=== PATIENT | male | born 1985 | race Caucasian/White ===

== ENCOUNTER 2017-02-17 16:28 | Emergency (ER) | payer OTHER ==
[2017-02-17 16:38] VITALS: BP 132/68
[2017-02-17] MEDS ORDERED: Eye Irrigation Solution 30 ML BOTTLE LEFT EYE ONE (16:45)
[2017-02-17] MEDS ORDERED: Fluorescein Sodium TOPICAL* 1 MG TEST OPHTHALMIC ONE (16:45)
[2017-02-17] MEDS ORDERED: Tetracaine 0.5% OPTH.SOL 4 ML* 1 DROP BTL LEFT EYE ONE (16:45)
--- NOTE | 2017-02-17 17:11 | UC ---
Eye Complaint HPI - HPI Summary HPI Summary: LEFT EYE IRRITATION YESTERDAY, TOOK OUT CONTACT LENS. SINCE TAKING OUT CONTACT LENS HAS HAD IRRITATION AND REDNESS TO LEFT EYE. CLEAR TEARY DISCHARGE - History of Current Complaint Chief Complaint: UCEye Stated Complaint: PINK EYE Time Seen by Provider: 02/17/17 16:35 Hx Obtained From: Patient Onset/Duration: Sudden Onset, Lasting Days Timing: Intermittent Episode Lasting Severity Initially: Mild Severity Currently: Mild Location of Injury: Conjunctiva Aggravating Factor(s): Nothing Associated Signs And Symptoms: Positive: Photophobia, Drainage (Clear). Negative: Drainage (Purulent), Vision Impairment Bilateral, Vision Impairment Right, Vision Impairment Left, Fever, Swelling - Risk Factors Penetrating Injury Risk Factor: Negative Acute Glaucoma Risk Factors: Eye Inflammation Optic Artery Occlusion Risk Factors: Negative - Allergies/Home Medications Allergies/Adverse Reactions: Allergies Allergy/AdvReac Type Severity Reaction Status Date / Time No Known Allergies Allergy Verified 02/17/17 16:38 PMH/Surg Hx/FS Hx/Imm Hx Previously Healthy: Yes - Surgical History Surgical History: None - Family History Known Family History: Negative: Diabetes - Social History Occupation: Works From/At Home Lives: With Family Alcohol Use: Weekly Substance Use Type: None Smoking Status (MU): Never Smoked Tobacco Review of Systems Constitutional: Negative Skin: Negative Eyes: Drainage, Eye Redness ENT: Negative Respiratory: Negative Cardiovascular: Negative Gastrointestinal: Negative Genitourinary: Negative Motor: Negative Neurovascular: Negative Musculoskeletal: Negative Neurological: Negative Psychological: Negative Is Patient Immunocompromised?: No All Other Systems Reviewed And Are Negative: Yes Physical Exam Triage Information Reviewed: Yes Appearance: Well-Appearing, No Pain Distress, Well-Nourished Vital Signs: Initial Vital Signs Temp 98.5 F 02/17/17 16:31 Pulse 74 02/17/17 16:31 Resp 14 02/17/17 16:31 BP 132/68 02/17/17 16:31 Pulse Ox 98 02/17/17 16:31 Vital Signs Reviewed: Yes Eyes: Positive: Conjunctiva Inflamed, Discharge, Other: - FLUORESCEIN UPTAKE LEFT CORNEA AT 3 OCLOCK WITH HORIZONTAL ABRASIONS ENT Exam: Normal ENT: Positive: Normal ENT inspection, Hearing grossly normal, Pharynx normal, TMs normal Dental Exam: Normal Neck exam: Normal Neck: Positive: Supple, Nontender, No Lymphadenopathy Respiratory Exam: Normal Respiratory: Positive: Chest non-tender, Lungs clear, Normal breath sounds, No respiratory distress, No accessory muscle use Cardiovascular Exam: Normal Cardiovascular: Positive: RRR, No Murmur, Pulses Normal Abdominal Exam: Normal Abdomen Description: Positive: Nontender, No Organomegaly Musculoskeletal Exam: Normal Musculoskeletal: Positive: Strength Intact, ROM Intact Neurological Exam: Normal Psychological Exam: Normal Skin Exam: Normal Eye Complaint Course/Dx - Differential Dx/Diagnosis Differential Diagnosis/HQI/PQRI: Conjunctivitis, Corneal Abrasion Provider Diagnoses: LEFT EYE CORNEAL ABRASION/CONJUNCTIVITIS Discharge - Discharge Plan Condition: Stable Disposition: HOME Prescriptions: Tobramycin 0.3% OPHTH.FAVIOLA* 1 drop LEFT EYE Q4H #1 btl Patient Education Materials: Corneal Abrasion (ED), Conjunctivitis (ED) Referrals: [facility] [Outside] Eric Burch MD [Medical Doctor] -
== END 2017-02-17 17:11 | disposition home or self-care (01) ==
LOC: UCCORT 16:28
DX: H18.822 Corneal disorder due to contact lens, left eye (principal); H10.32 Unspecified acute conjunctivitis, left eye
CPT/HCPCS: 99202; A9270-GY; G0463

== ENCOUNTER 2017-09-24 08:49 | Emergency (ER) | payer OTHER ==
[2017-09-24 09:04] VITALS: BP 129/93
--- NOTE | 2017-09-24 09:14 | UC ---
Ear Complaint HPI - HPI Summary HPI Summary: right ear pain x 2 days pain is sever, 9 out of 10 , no radiation , painful to touch right ear, decrease hearing, no cold symptoms, no fever, no chills, no hx of recent swimming - History of Current Complaint Chief Complaint: UCEar Stated Complaint: RIGHT EAR COMPLAINT Time Seen by Provider: 09/24/17 09:03 Hx Obtained From: Patient Onset/Duration: Gradual Onset, Lasting Days - 2, Still Present Severity Initially: Severe Severity Currently: Severe Pain Intensity: 9 Aggravating Factors: Other - touch Alleviating Factors: Nothing Associated Signs/Symptoms: Negative: Discharge, Hearing Loss, Foreign Body Sensation, Trauma to Ear, Swelling @, URI Symptoms - Allergies/Home Medications Allergies/Adverse Reactions: Allergies Allergy/AdvReac Type Severity Reaction Status Date / Time No Known Allergies Allergy Verified 09/24/17 09:02 Home Medications: Home Medications Estradiol [Estrace] 2 mg PO BID 09/24/17 [History Confirmed 09/24/17] Spironolactone TAB* [Aldactone TAB*] 50 mcg PO BID 09/24/17 [History Confirmed 09/24/17] PMH/Surg Hx/FS Hx/Imm Hx Previously Healthy: Yes - Surgical History Surgical History: None - Family History Known Family History: Negative: Diabetes - Social History Alcohol Use: Weekly Alcohol Amount: 2 drinks weekly Substance Use Type: None Smoking Status (MU): Never Smoked Tobacco Review of Systems Constitutional: Negative Skin: Negative Eyes: Negative ENT: Ear Ache Respiratory: Negative Cardiovascular: Negative Is Patient Immunocompromised?: No All Other Systems Reviewed And Are Negative: Yes Physical Exam Triage Information Reviewed: Yes Appearance: Well-Appearing, No Pain Distress, Well-Nourished Vital Signs: Initial Vital Signs Temp 100.1 F 09/24/17 08:59 Pulse 93 09/24/17 08:59 Resp 13 09/24/17 08:59 BP 129/93 09/24/17 08:59 Pulse Ox 99 09/24/17 08:59 Vital Signs Reviewed: Yes Eyes: Positive: Conjunctiva Clear ENT: Positive: Normal ENT inspection, Hearing grossly normal, Pharynx normal, TMs normal, Other - right ear canal : + erythema, swelling, tederness. Negative : TM bulging, TM dull, TM red Neck: Positive: Supple, Nontender, No Lymphadenopathy Respiratory: Positive: Chest non-tender, Lungs clear, Normal breath sounds Cardiovascular: Positive: RRR, No Murmur, Pulses Normal Abdominal Exam: Normal Skin Exam: Normal Ear Complaint Course/Dx - Differential Dx/Diagnosis Provider Diagnoses: otitis externa right ear Discharge - Sign-Out/Discharge Documenting (check all that apply): Patient Departure - Discharge Plan Condition: Stable Disposition: HOME Prescriptions: Amoxicillin PO (*) [Amoxicillin 875 MG (*)] 875 mg PO BID #20 tab Neomyc/Polym/HC 1% OTIC SUSP* [Cortisporin Otic Susp 1%*] 4 drop RIGHT EAR QID # 1 btl Patient Education Materials: Otitis Externa (ED) Referrals: Tera Thrasher MD [Primary Care Provider] - 7 Days - Billing Disposition and Condition Condition: STABLE Disposition: Home
== END 2017-09-24 09:20 | disposition home or self-care (01) ==
LOC: UCCORT 08:49
DX: H60.91 Unspecified otitis externa, right ear (principal)
CPT/HCPCS: 99212; G0463

== ENCOUNTER 2017-11-02 15:17 | Emergency (ER) | payer OTHER ==
--- NOTE | 2017-11-02 16:02 | ED ---
Medical Screening - HPI Summary HPI Summary: 31 year old transfemale who is 4 months into HRT presents requesting STI screening. She states that she is in a relationship with a transfemale and they are desiring to have a more intimate relationship and have agreed to STI testing before beginning a sexual relationship. Patient was tested approximately 5 years ago for HIV which was negative at that time however has not had any other STI testing performed to her knowledge. Her past relationships were all with cisgender females and she has only engaged in oral sex since her last testing. She and her current partner are anatomically male and she states she is open to anal intercourse however they have not discussed if they would engage in this practice. Her PCP is Dr. Patric Thrasher at [facility] and he manages her HRT. She is presently without any complaints and reports she is generally healthy. - History of Current Complaint Chief Complaint: UCSTDScreening Stated Complaint: PERSONAL Time Seen by Provider: 11/02/17 15:37 PMH/Surg Hx/FS Hx/Imm Hx Previously Healthy: Yes Endocrine/Hematology History: Reports: Other Endocrine/Hematological Disorders - HRT for gender dysphoria Denies: Hx Blood Transfusions, Hx Diabetes, Hx Thyroid Disease, Hx Coagulopothy Cardiovascular History: Denies: Hx Hypertension, Hx Valvular Heart Disease Respiratory History: Denies: Hx Asthma GI History: Denies: Hx Crohn's Disease, Hx Diverticulosis, Hx Gastroesophageal Reflux Disease, Hx Irritable Bowel History: Denies: Hx Kidney Infection, Hx Kidney Stones, Hx Renal Disease Musculoskeletal History: Denies: Hx Arthritis Infectious Disease History: No Infectious Disease History: Denies: Hx Human Immunodeficiency Virus (HIV), History Other Infectious Disease, Traveled Outside the [place] in Last 30 Days - Family History Known Family History: Positive: Other - noncontributory - Social History Occupation: Unemployed Lives: With Family Alcohol Use: Weekly Alcohol Amount: 2 drinks weekly Substance Use Type: Reports: None Smoking Status (MU): Never Smoked Tobacco Review of Systems Constitutional: Negative Cardiovascular: Negative Respiratory: Negative Gastrointestinal: Negative Genitourinary: Negative Skin: Negative All Other Systems Reviewed And Are Negative: Yes Physical Exam Triage Information Reviewed: Yes Vital Signs On Initial Exam: Initial Vitals Temp Pulse Resp BP Pulse Ox 99.4 F 95 16 127/71 98 11/02/17 15:29 11/02/17 15:29 11/02/17 15:29 11/02/17 15:29 11/02/17 15:29 Vital Signs Reviewed: Yes Appearance: Positive: Well-Appearing, No Pain Distress, Thin Skin: Positive: Warm, Skin Color Reflects Adequate Perfusion, Dry ENT: Positive: Normal ENT inspection Neck: Positive: Supple, Nontender Respiratory/Lung Sounds: Positive: Clear to Auscultation, Breath Sounds Present Cardiovascular: Positive: Normal, RRR Neurological: Positive: Alert, Oriented to Person Place, Time Psychiatric: Positive: Affect/Mood Appropriate Diagnostics - Vital Signs Vital Signs Temp Pulse Resp BP Pulse Ox 11/02/17 15:29 99.4 F 95 16 127/71 98 - Laboratory Lab Statement: Any lab studies that have been ordered have been reviewed, and results considered in the medical decision making process. Course/Dx - Course Course Of Treatment: 31 year transfemale requesting STI testing prior to starting an intimate relationship with her transfemale partner. Extensive counseling provided regarding safe sex practices including need to use barrier contraception with any sex practice even with negative testing. Screening for HIV, GC, chlamydia, and syphillis was conducted. She is to follow up with her PCP within the next 3 months if testing is negative for follow up testing and discusssion of routine screening. Patient verbalizes understanding and agrees with POC. - Diagnoses Provider Diagnoses: Encounter for well adult exam without abnormal findings, Routine screening for STI (sexually transmitted infection) Discharge - Sign-Out/Discharge Documenting (check all that apply): Patient Departure All imaging exams completed and their final reports reviewed: No Studies - Discharge Plan Condition: Stable Disposition: HOME Patient Education Materials: Safe Sex (ED) Referrals: Tera Thrasher MD [Primary Care Provider] - If Needed Additional Instructions: We have conducted screening testing for gonorrhea, chlamydia, syphilis, and HIV today. It will take several days to get all these results and we will contact you if any of these are positive. Please be sure you and your partner have a discussion about what sexual practices you are comfortable with engaging and be aware that it is very important that you use a barrier contraceptive such as a condom if you engage in any form sex. Be aware that even if you or your partner's HIV test is negative right now, there is still a chance that you may be HIV positive have have not converted. You need to continue to use barrier contraception to prevent the transmission of STIs and have routine testing done. Make an appointment to follow up with your primary care provider within the next 3 months so that you can discuss getting on a regular schedule. - Billing Disposition and Condition Condition: STABLE Disposition: Home
[2017-11-02 16:26] VITALS: BP 136/69
== END 2017-11-02 16:29 | disposition home or self-care (01) ==
LOC: UCCORT 15:17
DX: Z11.3 Encounter for screening for infections with a predominantly sexual mode of transmission (principal); F64.1 Dual role transvestism; Z79.890 Hormone replacement therapy
CPT/HCPCS: 36415; 86592; 86703; 87491; 87591; 99212; G0463

== ENCOUNTER 2018-07-26 11:59 | Emergency (ER) | payer MEDICAID, OTHER ==
[2018-07-26 12:27] VITALS: BP 123/66
--- NOTE | 2018-07-26 12:39 | UC ---
Throat Pain/Nasal Martin HPI - HPI Summary HPI Summary: 32-year-old transgender female presents with complaints of left your pain and fullness, nasal congestion, sinus pressure, and occasional sore throat. States symptoms have been coming and going for the past month. Presently has been having symptoms for about 3-4 days. Denies fever, chills, ear drainage, tinnitus, vertigo, dysphagia, or cough. - History of Current Complaint Chief Complaint: UCGeneralIllness Stated Complaint: LEFT EAR CONCERN Time Seen by Provider: 07/26/18 12:29 Hx Obtained From: Patient Pain Intensity: 4 - Allergies/Home Medications Allergies/Adverse Reactions: Allergies Allergy/AdvReac Type Severity Reaction Status Date / Time No Known Allergies Allergy Verified 07/26/18 12:22 Home Medications: Home Medications Estradiol PATCH 0.1 MG/DAY* [Climara PATCH 0.1 MG/DAY*] 0.1 mg .SEE ORDER [History] PMH/Surg Hx/FS Hx/Imm Hx Previously Healthy: Yes - Denies significant PMH - Surgical History Surgical History: None - Family History Known Family History: Positive: Non-Contributory - Social History Occupation: Works From/At Home Lives: Alone Alcohol Use: Weekly Alcohol Amount: 2 drinks weekly Substance Use Type: None Smoking Status (MU): Never Smoked Tobacco Review of Systems All Other Systems Reviewed And Are Negative: Yes Constitutional: Negative: Fever, Chills, Fatigue Skin: Negative: Rash Eyes: Negative: Drainage, Eye Redness ENT: Positive: Sore Throat, Ear Ache, Nasal Discharge, Sinus Congestion, Sinus Pain/Tenderness Respiratory: Negative: Shortness Of Breath, Cough Cardiovascular: Negative: Palpitations, Chest Pain Gastrointestinal: Positive: Negative Genitourinary: Positive: Negative Musculoskeletal: Positive: Negative Neurological: Positive: Negative Is Patient Immunocompromised?: No Physical Exam - Summary Physical Exam Summary: GENERAL APPEARANCE: Well developed, well nourished, alert and cooperative, and appears to be in no acute distress. EYES: Conjunctiva clear. No drainage. EARS: External auditory canals and tympanic membranes clear, hearing grossly intact. NOSE: Mild nasal congestion with mucosal erythema and edema. No nasal discharge. THROAT: Pharynx normal. No tonsilar inflammation, swelling, exudate, or lesions. Uvula midline. Oral cavity normal. Teeth and gingiva in good general condition. NECK: Neck supple, non-tender without lymphadenopathy. CARDIAC: Normal S1 and S2. No S3, S4 or murmurs. Rhythm is regular. There is no peripheral edema, cyanosis or pallor. Extremities are warm and well perfused. Capillary refill is less than 2 seconds. Peripheral pulses intact. LUNGS: Clear to auscultation without rales, rhonchi, wheezing or diminished breath sounds. ABDOMEN: Positive bowel sounds. Soft, nondistended, nontender. No guarding or rebound. No masses or hepatosplenomegally. MUSKULOSKELETAL: ROM intact to all extremities. No joint erythema or tenderness. Normal muscular development. Normal gait. SKIN: Skin normal color, texture and turgor with no lesions or eruptions. Triage Information Reviewed: Yes Vital Signs: Initial Vital Signs Temp 98.2 F 07/26/18 12:23 Pulse 88 07/26/18 12:23 Resp 15 07/26/18 12:23 BP 123/66 07/26/18 12:23 Pulse Ox 99 07/26/18 12:23 Vital Signs Reviewed: Yes Throat Pain/Nasal Course/Dx - Course Course Of Treatment: 32-year-old transgender female presents with complaints of left your pain and fullness, nasal congestion, sinus pressure, and occasional sore throat. States symptoms have been coming and going for the past month. Presently has been having symptoms for about 3-4 days. Denies fever, chills, ear drainage, tinnitus, vertigo, dysphagia, or cough. Afebrile. Vital signs stable. Exam revealed some mild nasal congestion is erythema and edema and was otherwise unremarkable. Discussed with patient I suspect her symptoms may be related to some seasonal allergy considering the duration of her symptoms although I cannot rule out the possibility of a viral infection as well. Recommending symptomatic treatment with saline rinses, fluticasone nasal spray, over-the- counter antihistamine-decongestant, and [id number] analgesics. She is to follow-up with her primary care provider in 3-5 days if symptoms do not improve. Anticipatory guidance and warning symptoms were reviewed with the patient. Verbalizes understanding and agrees with plan of care. - Differential Dx/Diagnosis Differential Diagnosis/HQI/PQRI: Otitis Media, Sinusitis, URI, Other - Seasonal allergies Provider Diagnosis: URI (upper respiratory infection) Discharge - Sign-Out/Discharge Documenting (check all that apply): Patient Departure All imaging exams completed and their final reports reviewed: No Studies - Discharge Plan Condition: Stable Disposition: HOME Prescriptions: Fluticasone NASAL SPRAY 50MCG* [Flonase NASAL SPRAY 50MCG*] 2 spray BOTH NARES DAILY #1 btl Patient Education Materials: Upper Respiratory Infection (ED) Referrals: Tera Thrasher MD [Primary Care Provider] - 3 Days Additional Instructions: Your history and exam are consistent with seasonal allergy or a viral upper respiratory infection. Allergies and viral infections do not respond to antibiotics and are limited to the treatment of symptoms. Viral infections typically run their course in 7-10 days. Use a saline rinse kit such as Neti Pot or NeilMed at least twice a day to help thin secretions and promote drainage of the sinuses. Use fluticasone (Flonase) nasal spray 2 sprays each nostril once daily. Try an over the counter antihistamine-decongestant such as Zyrtec-D, Shruthi-D, or Claritin-D to help with the congestion. There are generic forms of these medications that you may use. Take over the counter acetaminophen (Tylenol) or ibuprofen (Advil, Motrin) according to directions as needed for pain or fever. Use salt water gargles several times a day if you have a sore throat. You may also use Chloraseptic spray or Cepacol lonzenges according to directions which contain a numbing medication and can provide some temporary relief from your sore throat. Follow up with your primary care provider in 3-5 days if symptoms persist. Seek immediate medical attention in the emergency room if you have fever greater than 100.5 F despite taking acetaminophen or ibuprofen, have chest pain , difficulty breathing, are unable to swallow, or have any worsening of symptoms. - Billing Disposition and Condition Condition: STABLE Disposition: Home
== END 2018-07-26 12:49 | disposition home or self-care (01) ==
LOC: UCCORT 11:59
DX: J06.9 Acute upper respiratory infection, unspecified (principal); H92.02 Otalgia, left ear
CPT/HCPCS: 99212; G0463